=== PATIENT | female | born 1985 | race Caucasian/White ===

== ENCOUNTER → 2024-06-28 10:26 | Outpatient (REF) | payer OTHER, SELFPAY | LOC: WDC 10:26 | PROVIDERS: ATTENDING PHYSICIAN Advanced Practice Midwife | DX: N63.20 Unspecified lump in the left breast, unspecified quadrant (principal); N63.24 Unspecified lump in the left breast, lower inner quadrant | CPT/HCPCS: 76642; 77062; 77066 ==